=== PATIENT | female | born 1965 | race Caucasian/White ===

== ENCOUNTER 2020-10-21 14:48 | Emergency (ER) | payer MEDICARE, OTHER ==
[2020-10-21 14:55] VITALS: RESP 18; TEMP 98.4
--- NOTE | 2020-10-21 15:33 | ED ---
General Adult HPI - General Chief complaint: Chest Pain Stated complaint: chest pain Time Seen by Provider: 10/21/20 15:24 Source: patient, RN notes reviewed, old records reviewed Mode of arrival: wheelchair Limitations: no limitations - History of Present Illness Initial comments: 54-year-old female presented for evaluation of chest pain and pressure which began 30 minutes prior to arrival. She had an episode lasting for 5 minutes of central chest pressure with associated left arm and jaw pain. This was associated with nausea and dizziness. She has no known history of coronary artery disease. She states her symptoms are currently resolved. Denies shortness of breath. Denies lower extremity pain. She states she does have intermittent right leg swelling from time to time is been present for years. - Related Data Home Medications Medication Instructions Recorded Confirmed Cholecalciferol [Vitamin D3] 1,000 unit PO DAILY 04/13/15 10/21/20 Ipratropium/Albuterol Sulfate 1 - 2 puff INHALATION QID PRN 04/13/15 10/21/20 [Combivent Respimat Inhaler] ALPRAZolam [Xanax] 0.5 mg PO DAILY PRN 10/21/20 10/21/20 Dapagliflozin Propanediol [Farxiga] 10 mg PO DAILY 10/21/20 10/21/20 Fluticasone/Salmeterol [Advair 1 puff INHALATION RT-BID PRN 10/21/20 10/21/20 250-50 Diskus] Ibuprofen [Motrin Ib] 800 mg PO Q8H PRN 10/21/20 10/21/20 Levothyroxine Sodium [Synthroid] 75 mcg PO DAILY 10/21/20 10/21/20 Multivitamin [Multivitamins Adult 1 tab PO DAILY 10/21/20 10/21/20 Gummies] Vitamin B Complex 1 cap PO DAILY 10/21/20 10/21/20 metFORMIN HCL 1,000 mg PO BID 10/21/20 10/21/20 tiZANidine HCL 2 mg PO Q6H PRN 10/21/20 10/21/20 traMADol HCL 50 mg PO QID PRN 10/21/20 10/21/20 Allergies Allergy/AdvReac Type Severity Reaction Status Date / Time codeine Allergy Unknown Verified 10/21/20 16:24 Review of Systems ROS Statement: Those systems with pertinent positive or pertinent negative responses have been documented in the HPI. ROS Other: All systems not noted in ROS Statement are negative. Past Medical History Past Medical History: Cancer, COPD, Diabetes Mellitus, Fibromyalgia, Hyperlipidemia, Musculoskeletal Disorder, Thyroid Disorder Additional Past Medical History / Comment(s): diagnosed with MS in 2012, skin cancer (nose),heavy irregular painful periods History of Any Multi-Drug Resistant Organisms: MRSA Date of last positivie culture/infection: 2007 MDRO Source:: toe,cheek Past Surgical History: Section, Cholecystectomy, Hernia Repair, Uterine Ablation Additional Past Surgical History / Comment(s): skin cancer from nose Past Anesthesia/Blood Transfusion Reactions: No Reported Reaction Past Psychological History: Anxiety, Depression Smoking Status: Never smoker Past Alcohol Use History: None Reported Past Drug Use History: None Reported General Exam Limitations: no limitations General appearance: alert, in no apparent distress Head exam: Present: atraumatic, normocephalic Eye exam: Present: normal appearance, PERRL ENT exam: Present: normal exam Neck exam: Present: normal inspection. Absent: tenderness, meningismus Respiratory exam: Present: normal lung sounds bilaterally. Absent: respiratory distress, wheezes Cardiovascular Exam: Present: regular rate, normal rhythm GI/Abdominal exam: Present: soft. Absent: distended, tenderness, guarding Extremities exam: Present: normal inspection, normal capillary refill. Absent: pedal edema Neurological exam: Present: alert, oriented X3 Psychiatric exam: Present: normal affect, normal mood Skin exam: Present: warm, dry, intact. Absent: cyanosis, diaphoretic Course Vital Signs 10/21/20 10/21/20 10/21/20 14:51 15:55 16:00 Temperature 98.4 F 98.4 F Pulse Rate 85 78 78 Respiratory 18 18 18 Rate Blood Pressure 115/78 115/76 115/76 O2 Sat by Pulse 97 100 100 Oximetry EKG Findings - EKG Comments: EKG Findings:: EKG: Normal sinus rhythm, low voltage, rate of 80, CO interval 154, QRS duration 82, QTC 438, no ST segment elevation artifact in V1. Medical Decision Making - Medical Decision Making 54-year-old female presenting for evaluation of chest discomfort. EKG sinus rhythm without ST segment elevation. Chest x-ray is showing questionable infiltrate versus atelectasis however the patient has no reported fever or cough and was suspect atelectasis. Patient has stable hemoglobin, normal electrolytes. She has a mild transaminitis which she states she's had in the past. Her troponin is negative. I would prefer this patient stay for chest pain rule out, she prefers to be discharged and will return with any worsening or changing symptoms. I did also recommend a second troponin at 3 hours and the patient states she's eager for discharge and does not want to stay. She's given strict return parameters. - Lab Data Result diagrams: 10/21/20 15:26 10/21/20 15:26 Lab Results 10/21/20 10/21/20 10/21/20 Range/Units 15:26 15:26 15:26 WBC 12.5 H (3.8-10.6) k/uL RBC 5.34 (3.80-5.40) m/uL Hgb 14.7 (11.4-16.0) gm/dL Hct 43.8 (34.0-46.0) % MCV 82.0 (80.0-100.0) fL MCH 27.5 (25.0-35.0) pg MCHC 33.6 (31.0-37.0) g/dL RDW 14.1 (11.5-15.5) % Plt Count 281 (150-450) k/uL MPV 8.2 Neutrophils % 63 % Lymphocytes % 28 % Monocytes % 4 % Eosinophils % 2 % Basophils % 1 % Neutrophils # 7.8 H (1.3-7.7) k/uL Lymphocytes # 3.6 (1.0-4.8) k/uL Monocytes # 0.5 (0-1.0) k/uL Eosinophils # 0.3 (0-0.7) k/uL Basophils # 0.2 (0-0.2) k/uL PT 10.0 (9.0-12.0) sec INR 0.9 (<1.2) APTT 22.8 (22.0-30.0) sec Sodium 139 (137-145) mmol/L Potassium 4.1 (3.5-5.1) mmol/L Chloride 106 (98-107) mmol/L Carbon Dioxide 23 (22-30) mmol/L Anion Gap 10 mmol/L BUN 15 (7-17) mg/dL Creatinine 0.62 (0.52-1.04) mg/dL Est GFR (CKD-EPI)AfAm >90 (>60 ml/min/1.73 sqM) Est GFR (CKD-EPI)NonAf >90 (>60 ml/min/1.73 sqM) Glucose 138 H (74-99) mg/dL Calcium 9.7 (8.4-10.2) mg/dL Magnesium 1.8 (1.6-2.3) mg/dL Total Bilirubin 0.7 (0.2-1.3) mg/dL AST 77 H (14-36) U/L ALT 73 H (4-34) U/L Alkaline Phosphatase 97 (38-126) U/L Troponin I (0.000-0.034) ng/mL Total Protein 8.3 H (6.3-8.2) g/dL Albumin 4.5 (3.5-5.0) g/dL 10/21/20 Range/Units 15:26 WBC (3.8-10.6) k/uL RBC (3.80-5.40) m/uL Hgb (11.4-16.0) gm/dL Hct (34.0-46.0) % MCV (80.0-100.0) fL MCH (25.0-35.0) pg MCHC (31.0-37.0) g/dL RDW (11.5-15.5) % Plt Count (150-450) k/uL MPV Neutrophils % % Lymphocytes % % Monocytes % % Eosinophils % % Basophils % % Neutrophils # (1.3-7.7) k/uL Lymphocytes # (1.0-4.8) k/uL Monocytes # (0-1.0) k/uL Eosinophils # (0-0.7) k/uL Basophils # (0-0.2) k/uL PT (9.0-12.0) sec INR (<1.2) APTT (22.0-30.0) sec Sodium (137-145) mmol/L Potassium (3.5-5.1) mmol/L Chloride (98-107) mmol/L Carbon Dioxide (22-30) mmol/L Anion Gap mmol/L BUN (7-17) mg/dL Creatinine (0.52-1.04) mg/dL Est GFR (CKD-EPI)AfAm (>60 ml/min/1.73 sqM) Est GFR (CKD-EPI)NonAf (>60 ml/min/1.73 sqM) Glucose (74-99) mg/dL Calcium (8.4-10.2) mg/dL Magnesium (1.6-2.3) mg/dL Total Bilirubin (0.2-1.3) mg/dL AST (14-36) U/L ALT (4-34) U/L Alkaline Phosphatase (38-126) U/L Troponin I <0.012 (0.000-0.034) ng/mL Total Protein (6.3-8.2) g/dL Albumin (3.5-5.0) g/dL Disposition Clinical Impression: Chest pain Disposition: HOME SELF-CARE Condition: Fair Instructions (If sedation given, give patient instructions): Chest Pain (ED) Is patient prescribed a controlled substance at d/c from ED?: No Referrals: Fabricio Marino MD [Primary Care Provider] - 1-2 days Time of Disposition: 17:04
[2020-10-21 15:42] LABS: Basophils # (A) 0.2 k/uL (0-0.2); Basophils % (A) 1 %; Eosinophils # (A) 0.3 k/uL (0-0.7); Eosinophils % (A) 2 %; HCT 43.8 % (34.0-46.0); HGB 14.7 gm/dL (11.4-16.0); Lymphocytes # (A) 3.6 k/uL (1.0-4.8); Lymphocytes % (A) 28 %; MCH 27.5 pg (25.0-35.0); MCHC 33.6 g/dL (31.0-37.0); Mean Platelet Volume 8.2; Monocytes # (A) 0.5 k/uL (0-1.0); Monocytes % (A) 4 %; Neutrophils # (A) 7.8 k/uL (1.3-7.7); Neutrophils % (A) 63 %; Platelet Count 281 k/uL (150-450); RBC 5.34 m/uL (3.80-5.40); RDW 14.1 % (11.5-15.5); WBC 12.5 k/uL (3.8-10.6)
[2020-10-21 15:51] LABS: ALT 73 U/L (4-34); AST 77 U/L (14-36); African American GFR (CKD) >90 (>60 ml/min/1.73 sqM); Albumin 4.5 g/dL (3.5-5.0); Alkaline Phosphatase 97 U/L (38-126); Anion Gap 10 mmol/L; Blood Urea Nitrogen 15 mg/dL (7-17); Calcium 9.7 mg/dL (8.4-10.2); Carbon Dioxide 23 mmol/L (22-30); Chloride 106 mmol/L (98-107); Glucose 138 mg/dL (74-99); Magnesium 1.8 mg/dL (1.6-2.3); Non-African American GFR(CKD) >90 (>60 ml/min/1.73 sqM); Potassium 4.1 mmol/L (3.5-5.1); Sodium 139 mmol/L (137-145); Total Bilirubin 0.7 mg/dL (0.2-1.3); Total Protein 8.3 g/dL (6.3-8.2)
--- NOTE | 2020-10-21 15:52 | XR ---
EXAMINATION TYPE: XR chest 2V DATE OF EXAM: 10/21/2020 COMPARISON: 08/17/2017 INDICATION: Cough short of breath TECHNIQUE: Frontal and lateral views of the chest are obtained. FINDINGS: The heart size is normal. The pulmonary vasculature is normal. Subsegmental atelectasis above the bilateral diaphragms. Lungs are otherwise clear.. IMPRESSION: 1. Subsegmental atelectasis at the lung bases. Minimal infiltrates such as atypical pneumonia could b e considered.
[2020-10-21 15:55] LABS: INR 0.9 (<1.2); Partial Thromboplastin Time 22.8 sec (22.0-30.0)
[2020-10-21] MEDS ORDERED: ASPIRIN 325 MG TAB PO STA (17:04)
[2020-10-21 17:14] VITALS: BP 118/75; PULSE 84
== END 2020-10-21 17:17 | disposition home or self-care (01) ==
LOC: EC 14:48
DX: R07.9 Chest pain, unspecified (principal); R74.01 Elevation of levels of liver transaminase levels; J44.9 Chronic obstructive pulmonary disease, unspecified; E11.9 Type 2 diabetes mellitus without complications; E07.9 Disorder of thyroid, unspecified; F41.9 Anxiety disorder, unspecified; F32.9 Major depressive disorder, single episode, unspecified; Z79.84 Long term (current) use of oral hypoglycemic drugs; Z79.899 Other long term (current) drug therapy; Z79.890 Hormone replacement therapy; Z88.5 Allergy status to narcotic agent; Z85.828 Personal history of other malignant neoplasm of skin
CPT/HCPCS: 36415; 71046; 80053; 83735; 84484; 85025; 85610; 85730; 93005; 99285